=== PATIENT | male | born 1940 | race Caucasian/White ===

== ENCOUNTER → 2018-04-20 | Day surgery (SDC) | payer OTHER ==
[2018-04-18 13:00] LABS: BASOPHILS # (AUTO) 0.1 (0.0-0.1); BASOPHILS % 0.7 % (0.0-1.0); EOSINOPHILS # (AUTO) 0.1 (0.0-0.4); EOSINOPHILS % 1.7 % (0.0-6.0); HEMOGLOBIN 11.9 g/dL (14.0-18.0); LYMPHOCYTES # (AUTO) 2.1 (1.0-3.2); LYMPHOCYTES % 29.7 % (18.0-39.1); MEAN CORPUSCULAR HEMOGLOBIN 32.1 pg (28-32); MEAN CORPUSCULAR HGB CONC 33.1 g/dL (31-35); MONOCYTES # (AUTO) 0.6 (0.2-0.8); MONOCYTES % 8.7 % (4.4-11.3); NEUTROPHILS # (AUTO) 4.1 (2.1-6.9); NEUTROPHILS % 59.1 % (38.7-80.0); PLATELET COUNT 190 x10e3/uL (140-360); RED BLOOD COUNT 3.71 x10e6/uL (4.3-5.7); RED CELL DISTRIBUTION WIDTH 12.6 % (11.7-14.4)
[2018-04-18 13:17] LABS: ANION GAP 14.9 mmol/L (8-16); CALCIUM 9.3 mg/dL (8.4-10.2); CREATININE, SERUM 1.65 mg/dL (0.72-1.25); POTASSIUM 3.9 mmol/L (3.5-5.1)
--- NOTE | 2018-04-18 13:24 | Diagnostic Imaging Report ---
EXAMINATION: PA and lateral views of the chest. COMPARISON: None CLINICAL HISTORY: Preop prostate surgery DISCUSSION: The lungs are well-inflated. No focal consolidation, pleural effusion, or pneumothorax. Calcified granuloma in the lingula. Atherosclerotic calcification of the thoracic aorta. Normal heart size. No overt pulmonary edema. No acute osseous abnormality. Incidental note of colonic interposition between the right hepatic lobe and right hemidiaphragm. IMPRESSION: No acute cardiopulmonary abnormalities. Signed by: Dr. Joni Skinner M.D. on 04/18/2018 1:20 PM
[~2018-04-20] MED LIST: ARICEPT5 MG PO; ASPIR 8181 MG PO; CARVEDILOL12.5 MG PO; CEFTRIAXONE SOD 1 GM VIAL ONE; CO Q-10 PO; DESFLURANE 240 ML BTL INH ONE; DEXAMETHASONE SOD PHOS INJ 4 MG/ML VIAL ONE; DOXAZOSIN MESYLA4 MG PO; DOXYCYCLINE HY100 M3 PO; GENTAMICIN 80MG/NS 100 ML 100 ML IV ONE; IOPAMIDOL 610MG/1ML 300 MG/ML VIAL IV ONE; ISOSORBIDE DINI10 MG PO; LASIX20 MG PO; LIDOCAINE HCL 2% LOCAL INJ 5 ML SDV VIAL INJ ONE; LOSARTAN-HCTZ1 EAC1 PO; LOVASTATIN40 MG PO; MECLIZINE HCL12.5 MG PO; NAMENDA10 MG PO; ONDANSETRON HCL INJ 2 MG/ML VIAL ONE; POTASSIUM CHLO10 ME1 PO; PROPOFOL IV EMULSION 10 MG/ML 20 ML VIAL ONE; VITAMIN B-121000 MCG PO
--- OUTSIDE RECORDS SUMMARY | 2018-04-20 07:54 | XMS REPORT ---
Author Author Kinjal Layton Organization [employer] Address Unknown Phone Unavailable Care Team Providers Care Chief Projectionist Name Role Phone Kinjal Layton CP Unavailable Allergies, Adverse Reactions, Alerts Substance Reaction Event Type N.K.D.A. 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 Active Assessment Benign hypertensive heart disease without congestive heart failure I11.9 Active Assessment Pure hypercholesterolemia E78.0 Active Medications Medication Code System Code Instructions Start Date End Date Status Dosage [facility] [address]-25 4 MG Orally Once a day Active 1 tablet Lovastatin [facility] [address]-93 40 MG Orally Once a day Active 1 tablet with a meal Dre Aspirin [facility] [address]-09 81 mg as needed Active Orally [facility] 75316104176 6.25 Active TAKE ONE TABLET BY MOUTH TWICE A DAY WITH FOOD Losartan Potassium-HCTZ [facility] [address]-96 100-25 MG Orally Once a day Active 1 tablet Social History Social History Element Qualifiers Date Reported Smoking: . Are you a: Never smoker Apr 09, 2016 Alcohol: . None Apr 09, 2016 Vital Signs Date/Time: Aug 13, 2015 Weight 180 lbs Cardiac Monitoring Heart Rate 48 /min Blood Pressure Diastolic 80 mm Hg Blood Pressure Systolic 128 mm Hg Summary Purpose eClinicalWorks Submission
--- OUTSIDE RECORDS SUMMARY | 2018-04-20 07:54 | XMS REPORT ---
Author Author Kinjal Layton Organization [employer] Address Unknown Phone Unavailable Care Team Providers Care Ceramic Tiler Name Role Phone Kinjal Layton CP Unavailable Allergies, Adverse Reactions, Alerts Substance Reaction Event Type N.K.D.A. 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 Active Assessment Dizziness R42 Active Assessment Other symptoms involving cardiovascular system R09.89 Active Assessment Benign hypertensive heart disease without congestive heart failure I11.9 Active Assessment Pure hypercholesterolemia E78.0 Active Medications Medication Code System Code Instructions Start Date End Date Status Dosage Losartan Potassium-HCTZ [facility] [address]-96 100-25 MG Orally Once a day Active 1 tablet Lovastatin [facility] [address]-88 40 MG Orally Once a day Active 1 tablet with a meal Dre [facility]ir[facility] [address]-11 81 mg as needed Active Orally Core[facility] 17501379154 6.25 Active TAKE ONE TABLET BY MOUTH TWICE A DAY WITH FOOD Doxazosin Mesylate [facility] [address]-29 4 MG Orally Once a day Active 1 tablet Isosorbide Dinitrate [facility] 19434967011 10 Active TAKE ONE TABLET BY MOUTH EVERY NIGHT AT BEDTIME. SUBSTITUTED FOR IMDUR Social History Social History Element Qualifiers Date Reported Smoking: . Are you a: Never smoker Apr 09, 2016 Alcohol: . None Apr 09, 2016 Vital Signs Date/Time: Feb 26, 2016 Weight 182 lbs Cardiac Monitoring Heart Rate 44 /min Blood Pressure Diastolic 68 mm Hg Blood Pressure Systolic 140 mm Hg Summary Purpose eClinicalWorks Submission
--- OUTSIDE RECORDS SUMMARY | 2018-04-20 07:54 | XMS REPORT ---
Author Author Kinjal Layton Organization [employer] Address Unknown Phone Unavailable Care Team Providers Care Roller Helper Name Role Phone Kinjal Layton CP Unavailable Allergies, Adverse Reactions, Alerts Substance Reaction Event Type N.K.D.A. 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 Active Assessment Dizziness R42 Active Assessment Benign hypertensive heart disease without congestive heart failure I11.9 Active Assessment Pure hypercholesterolemia E78.0 Active Medications Medication Code System Code Instructions Start Date End Date Status Dosage Doxazosin Mesylate [facility] [address]-51 4 MG Orally Once a day Active 1 tablet Dre Aspirin [facility] [address]-84 81 mg as needed Active Orally Losartan Potassium-HCTZ [facility] [address]-70 100-25 MG Orally Once a day Active 1 tablet Lovastatin [facility] [address]-06 40 MG Orally Once a day Active 1 tablet with a meal Coreg [facility] 55012269408 6.25 Active TAKE ONE TABLET BY MOUTH TWICE A DAY WITH FOOD Isosorbide Dinitrate [facility] 13442235335 10 Active TAKE ONE TABLET BY MOUTH EVERY NIGHT AT BEDTIME. SUBSTITUTED FOR IMDUR Social History Social History Element Qualifiers Date Reported Smoking: . Are you a: Never smoker Apr 09, 2016 Alcohol: . None Apr 09, 2016 Vital Signs Date/Time: Aug 28, 2015 Weight 180 lbs Cardiac Monitoring Heart Rate 48 /min Blood Pressure Diastolic 80 mm Hg Blood Pressure Systolic 160 mm Hg Summary Purpose eClinicalWorks Submission
--- OUTSIDE RECORDS SUMMARY | 2018-04-20 07:54 | XMS REPORT ---
Author Author Kinjal Layton Organization [employer] Address Unknown Phone Unavailable Care Team Providers Care Methods Examiner Name Role Phone Kinjal Layton CP Unavailable Allergies, Adverse Reactions, Alerts Substance Reaction Event Type N.K.D.A. 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 Active Assessment Other symptoms involving cardiovascular system 785.9 Active Assessment Atherosclerosis of [place] arteries of the extremities with intermittent claudication 440.21 Active Assessment 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 Active Assessment Dizziness and giddiness 780.4 Active Medications Medication Code System Code Instructions Start Date End Date Status Dosage [facility] [address]-78 6.25 MG Orally Twice a day Active 1 tablet with food Losartan Potassium-HCTZ [facility] [address]-98 100-25 MG Orally Once a day Active 1 tablet Doxazosin Mesylate [facility] [address]-77 4 MG Orally Once a day Active 1 tablet Core[facility] [address]-93 6.25 MG Orally Twice a day Active 1 tablet with food Dre Aspirin [facility] [address]-08 81 mg as needed Active Orally Lovastatin [facility] [address]-60 40 MG Orally Once a day Active 1 tablet with a meal Doxycycline Monohyd-Cleanser Unknown 0 150 MG (TABS) Combination Active as directed Social History Social History Element Qualifiers Date Reported Smoking: . Are you a: Never smoker Apr 09, 2016 Alcohol: . None Apr 09, 2016 Vital Signs Date/Time: December 19, 2014 Weight 183 lbs Cardiac Monitoring Heart Rate 68 /min Blood Pressure Diastolic 62 mm Hg Blood Pressure Systolic 110 mm Hg Summary Purpose eClinicalWorks Submission
--- OUTSIDE RECORDS SUMMARY | 2018-04-20 07:54 | XMS REPORT ---
Author Author Kinjal Layton Organization [employer] Address Unknown Phone Unavailable Care Team Providers Care Halfway House Counselor Name Role Phone Kinjal Layton CP Unavailable Allergies, Adverse Reactions, Alerts Substance Reaction Event Type N.K.D.A. 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 Active Assessment Benign hypertensive heart disease without congestive heart failure I11.9 Active Assessment Dizziness R42 Active Medications Medication Code System Code Instructions Start Date End Date Status Dosage Coreg [facility] 50185387070 6.25 Active TAKE ONE TABLET BY MOUTH TWICE A DAY WITH FOOD Dre Aspirin ND 82718790688 81 mg as needed Active Orally Losartan Potassium-HCTZ ND 16520123964 100-25 MG Orally Once a day Active 1 tablet Lovastatin ND 56223669012 40 MG Orally Once a day Active 1 tablet with a meal Doxazosin Mesylate ND 29176098737 4 MG Orally Once a day Active 1 tablet Isosorbide Dinitrate ND 33207059376 10 Active TAKE ONE TABLET BY MOUTH EVERY NIGHT AT BEDTIME. SUBSTITUTED FOR IMDUR Vital Signs Date/Time: Apr 21, 2017 BMI 33.20 Index Weight 170 lbs Height 5'9 in Cardiac Monitoring Heart Rate 48 /min Blood Pressure Diastolic 66 mm Hg Blood Pressure Systolic 140 mm Hg Results No Known Results Summary Purpose eClinicalWorks Submission
--- OUTSIDE RECORDS SUMMARY | 2018-04-20 07:54 | XMS REPORT | Continuity of Care Document ---
Author Author [facility] Interface Address Unknown Phone Unavailable Problems Problem Status Onset Date Classification Date Reported Comments Source Benign hypertensive heart disease without heart failure Active Problem 08/31/2017 [facility] Atherosclerosis of [place] arteries of the extremities with intermittent claudication Active Problem 08/31/2017 med [facility] Pure hypercholesterolemia Active Problem 08/31/2017 [facility] Other symptoms involving cardiovascular system Active Diagnosis 08/31/2017 [facility] Atheroscler of [place] artery of both legs with intermit claudication Active Diagnosis 08/31/2017 Kinjal Layton Benign hypertensive heart disease without congestive heart failure Active Diagnosis 08/31/2017 Kinjal De Guzmanmed Dizziness Active Diagnosis 08/31/2017 Kinjal Layton Deep vein thrombophlebitis of right leg Active Diagnosis 08/31/2017 [facility] Bradycardia [facility] Pure hypercholesterolemia Active Diagnosis 05/17/2016 Kinjal De Guzmanmed Other symptoms involving cardiovascular system Active Diagnosis 05/19/2016 [facility] Kinjal Dizziness and giddiness Active Diagnosis 05/19/2016 Kinjal Layton Medications Medication Details Route Status Patient Instructions Ordering Provider Order Date Source Doxazosin Mesylate 1 tablet Orally Active 4 MG Orally Once a day Kinjal Layton Lovastatin 1 tablet with a meal Orally Active 40 MG Orally Once a day Kinjal Layton Dre Aspirin Orally NA Active 81 mg as needed dash Layton Coreg TAKE ONE TABLET BY MOUTH TWICE A DAY WITH FOOD NA Active 6.25 Kinjal Layton Losartan Potassium-HCTZ 1 tablet Orally Active 100-25 MG Orally Once a day Kinjal Layton Isosorbide Dinitrate TAKE ONE TABLET BY MOUTH EVERY NIGHT AT BEDTIME. SUBSTITUTED FOR IMDUR NA Active 10 Kinjal Layton Doxazosin Mesylate 1 tablet Orally Active 4 MG Orally Once a day Kinjal Layton Dre Aspirin Orally NA Active 81 mg as needed Kinjal Layton Losartan Potassium-HCTZ 1 tablet Orally Active 100-25 MG Orally [facility] Lovastatin 1 tablet with a meal Orally Active 40 MG Orally Once a day Ahmed Ahmed Ahmed Doxycycline Monohyd-Cleanser as directed Combination Active 150 MG (TABS) Combination Ahmed Gabmed Ahmed Coreg 1 tablet with food Orally Active 6.25 MG Orally Twice a day Ahmed Ahmed Ahmed Allergies, Adverse Reactions, Alerts Substance Category Reaction Severity Reaction type Status Date Reported Comments Source N.K.D.A. Adverse Reaction Info Not Available Adverse Reaction Active 05/05/2017 Ahmed Ahmed Immunizations Immunization Date Given Site Status Last Updated Comments Source Results Order Name Results Value Reference Range Date Interpretation Comments Source Vital Signs Vital Sign Value Date Comments Source Weight 170 05/05/2017 Ahmed Ahmed Heart Rate 48 05/05/2017 Ahmed Ahmed Diastolic (mm Hg) 60 05/05/2017 Ahmed Ahmed Systolic (mm Hg) 122 05/05/2017 Ahmed Ahmed Weight 170 04/21/2017 Ahmed Ahmed Heart Rate 48 04/21/2017 Ahmed Ahmed Diastolic (mm Hg) 66 04/21/2017 Ahmed Ahmed Systolic (mm Hg) 140 04/21/2017 Ahmed Ahmed Weight 175 10/20/2016 Ahmed Ahmed Heart Rate 44 10/20/2016 Ahmed Ahmed Diastolic (mm Hg) 64 10/20/2016 Ahmed Ahmed Systolic (mm Hg) 104 10/20/2016 Ahmed Ahmed Weight 182 04/09/2016 Ahmed Ahmed Heart Rate 56 04/09/2016 Ahmed Ahmed Diastolic (mm Hg) 70 04/09/2016 Ahmed Ahmed Systolic (mm Hg) 140 04/09/2016 Ahmed Ahmed Weight 182 02/26/2016 Ahmed Ahmed Heart Rate 44 02/26/2016 Ahmed Ahmed Diastolic (mm Hg) 68 02/26/2016 Ahmed Ahmed Systolic (mm Hg) 140 02/26/2016 Ahmed Ahmed Weight 180 08/28/2015 Ahmed Ahmed Heart Rate 48 08/28/2015 Ahmed Ahmed Diastolic (mm Hg) 80 08/28/2015 Ahmed Ahmed Systolic (mm Hg) 160 08/28/2015 Ahmed Ahmed Weight 180 08/13/2015 Ahmed Ahmed Heart Rate 48 08/13/2015 Ahmed Ahmed Diastolic (mm Hg) 80 08/13/2015 Ahmed Ahmed Systolic (mm Hg) 128 08/13/2015 Ahmed Ahmed Weight 183 02/19/2015 Ahmed Ahmed Heart Rate 48 02/19/2015 Ahmed Ahmed Diastolic (mm Hg) 58 02/19/2015 Ahmed Ahmed Systolic (mm Hg) 124 02/19/2015 Ahmed Ahmed Weight 183 12/19/2014 Ahmed Ahmed Heart Rate 68 12/19/2014 Ahmed Ahmed Diastolic (mm Hg) 62 12/19/2014 Ahmed Ahmed Systolic (mm Hg) 110 12/19/2014 Ahmed Ahmed Weight 190 07/18/2014 Ahmed Ahmed Heart Rate 48 07/18/2014 Ahmed Ahmed Diastolic (mm Hg) 68 07/18/2014 Ahmed Ahmed Systolic (mm Hg) 140 07/18/2014 Ahmed Ahmed Encounters Location Location Details Encounter Type Encounter Number Reason For Visit Attending Provider ADM Date DC Date Status Source Kinjal Layton MD, [place] 4 MONTH F/U [id number] 07/18/2014 07/18/2014 Kinjal Layton MD, PA 4 MONTH F/U [id number] 07/18/2014 07/18/2014 Kinjal Layton MD, PA 4 MONTH F/U [id number] 07/18/2014 07/18/2014 Kinjal Layton MD, PA 6 MO F/U [id number] 12/19/2014 12/19/2014 Kinjal Layton MD, PA 6 MO F/U [id number] 12/19/2014 12/19/2014 Kinjal Layton MD, [place] f/u testing [id number] 02/19/2015 02/19/2015 Kinjal Layton MD, [place] f/u 6 mon [id number] 08/13/2015 08/13/2015 Kinjal Layton MD, [place] f/u 6 [facility] [id number] 08/13/2015 08/13/2015 Kinjal Layton MD, PA f/u 6 [facility] [id number] 08/13/2015 08/13/2015 Kinjal Layton MD, PA f/u 6 [facility] [id number] 08/13/2015 08/13/2015 Kinjal Layton MD, PA f/u 6 [facility] [id number] 08/13/2015 08/13/2015 Kinjal Layton MD, PA f/u 6 [facility] [id number] 08/13/2015 08/13/2015 Kinjal Layton MD, PA f/u 6 [facility] [id number] 08/13/2015 08/13/2015 Kijnal Layton MD, PA f/u Echo [id number] 08/28/2015 08/28/2015 Kinjal Layton MD, PA f/u Echo [id number] 08/28/2015 08/28/2015 Kinjal Layton MD, [place] f/u Echo [id number] 08/28/2015 08/28/2015 Kinjal Layton MD, [place] f/u Echo [id number] 08/28/2015 08/28/2015 Kinjal Layton MD, [place] f/u Echo [id number] 08/28/2015 08/28/2015 Kinjal Layton MD, [place] f/u Echo [id number] 08/28/2015 08/28/2015 Kinjal Layton MD, [place] f/u Echo [id number] 08/28/2015 08/28/2015 Kinjal Layton MD, PA 6 mo f/u [id number] 02/26/2016 02/26/2016 Kinjal Layton MD, PA 6 mo f/u [id number] 02/26/2016 02/26/2016 Kinjal Layton MD, PA 6 mo f/u [id number] 02/26/2016 02/26/2016 Kinjal Layton MD, PA 6 mo f/u [id number] 02/26/2016 02/26/2016 Kinjal Layton MD, PA 6 mo f/u [id number] 02/26/2016 02/26/2016 Kinjal Layton MD, PA f/u testing [id number] 04/09/2016 04/09/2016 Kinjal Layton MD, [place] f/u testing [id number] 04/09/2016 04/09/2016 Kinjal Layton MD, PA f/u testing [id number] 04/09/2016 04/09/2016 Kinjal Layton MD, [place] f/u testing [id number] 04/09/2016 04/09/2016 Kinjal Layton Procedures Procedure Code Date Perfomer Comments Source
--- OUTSIDE RECORDS SUMMARY | 2018-04-20 07:54 | XMS REPORT ---
Author Author Kinjal Layton Organization e[employer] Address Unknown Phone Unavailable Care Team Providers Care Numerical Control Nesting Operator Name Role Phone Kinjal Layton CP Unavailable Allergies, Adverse Reactions, Alerts Substance Reaction Event Type N.K.D.A. 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 Active Assessment Benign hypertensive heart disease without congestive heart failure I11.9 Active Assessment Dizziness R42 Active Medications Medication Code System Code Instructions Start Date End Date Status Dosage Doxazosin Mesylate ND 27170873873 4 MG Orally Once a day Active 1 tablet Lovastatin ND 03692937150 40 MG Orally Once a day Active 1 tablet with a meal Dre Aspirin ND 92671006216 81 mg as needed Active Orally Coreg ND 09846685102 6.25 Active TAKE ONE TABLET BY MOUTH TWICE A DAY WITH FOOD Losartan Potassium-HCTZ ND 07145643993 100-25 MG Orally Once a day Active 1 tablet Isosorbide Dinitrate ND 22621993047 10 Active TAKE ONE TABLET BY MOUTH EVERY NIGHT AT BEDTIME. SUBSTITUTED FOR IMDUR Vital Signs Date/Time: October 20, 2016 BMI 34.17 Index Weight 175 lbs Height 5'9 in Cardiac Monitoring Heart Rate 44 /min Blood Pressure Diastolic 64 mm Hg Blood Pressure Systolic 104 mm Hg Results No Known Results Summary Purpose eClinicalWorks Submission
--- OUTSIDE RECORDS SUMMARY | 2018-04-20 07:54 | XMS REPORT ---
Author Author Kinjal Layton Organization e[employer] Address Unknown Phone Unavailable Care Team Providers Care Brasswind Instrument Repairer Name Role Phone Kinjal Layton CP Unavailable Allergies, Adverse Reactions, Alerts Substance Reaction Event Type N.K.D.A. 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 Active Assessment Benign hypertensive heart disease without congestive heart failure I11.9 Active Assessment Dizziness R42 Active Medications Medication Code System Code Instructions Start Date End Date Status Dosage Doxazosin Mesylate ND 32168681150 4 MG Orally Once a day Active 1 tablet Dre Aspirin ND 91268222712 81 mg as needed Active Orally Lovastatin ND 45454469112 40 MG Orally Once a day Active 1 tablet with a meal Losartan Potassium-HCTZ ND 25303181493 100-25 MG Orally Once a day Active 1 tablet Coreg ND 25591137459 6.25 Active TAKE ONE TABLET BY MOUTH TWICE A DAY WITH FOOD Isosorbide Dinitrate ND 58024985492 10 Active TAKE ONE TABLET BY MOUTH EVERY NIGHT AT BEDTIME. SUBSTITUTED FOR IMDUR Vital Signs Date/Time: May 05, 2017 BMI 33.20 Index Weight 170 lbs Height 5'9 in Cardiac Monitoring Heart Rate 48 /min Blood Pressure Diastolic 60 mm Hg Blood Pressure Systolic 122 mm Hg Results No Known Results Summary Purpose eClinicalWorks Submission
--- OUTSIDE RECORDS SUMMARY | 2018-04-20 07:54 | XMS REPORT ---
Author Author [facility] Address Unknown Phone Unavailable Care Team Providers Care College Professor Name Role Phone JAN LINDSEY Unavailable Unavailable Problems This patient has no known problems. Allergies, Adverse Reactions, Alerts This patient has no known allergies or adverse reactions. Medications This patient has no known medications. Results Test Description Test Time Test Comments Text Results Atomic Results Result Comments CHEST 2 VIEWS 2018-04-18 13:18:00 [place] [address] Patient Name: JUAN F ARRIAGA MR #: [id number] : 1940 Age/Sex: 77/M Req #: [id number] [facility] Physician: Ordered by: JAN LINDSEY MD Report #: [id number] Location: OR Room/Bed: Procedure: [id number] DX/CHEST 2 VIEWS Exam Date: 04/18/18 Exam Time: 1300 REPORT STATUS: Signed EXAMINATION: PA and lateral views of the chest. COMPARISON: None CLINICAL HISTORY: Preop prostate surgery DISCUSSION: The lungs are well-inflated. No focal consolidation, pleural effusion, or pneumothorax. Calcified granuloma in the lingula. Atherosclerotic calcification of the thoracic aorta. Normal heart size. No overt pulmonary edema. No acute osseous abnormality. Incidental note of colonic interposition between the right hepatic lobe and right hemidiaphragm. IMPRESSION: No acute cardiopulmonary abnormalities. Signed by: Dr. Anisha Jenkins M.D. on 04/18/2018 1:20 PM Dictated By: ANISHA JENKINS MD 132 Transcribed By: EV on 04/18/181319 COPY TO: JAN LINDSEY MD
--- OUTSIDE RECORDS SUMMARY | 2018-04-20 07:54 | XMS REPORT ---
Author Author Kinjal Layton Organization [employer] Address Unknown Phone Unavailable Care Team Providers Care Insole Buffer Name Role Phone Kinjal Layton CP Unavailable Allergies, Adverse Reactions, Alerts Substance Reaction Event Type N.K.D.A. 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 [address]-47 40 MG Orally Once a day Active 1 tablet with a meal [facility] [address]-07 100-25 MG Orally Once a day Active [address] [facility] [address]-65 4 MG Orally Once a day Active 1 tablet Doxycycline Monohyd-Cleanser Unknown 0 150 MG (TABS) Combination Active as directed Coreg [facility] [address]-88 6.25 MG Orally Twice a day Active 1 tablet with food Dre Aspirin [facility] [address]-53 81 mg as needed Active Orally Social History Social History Element Qualifiers Date Reported Smoking: . Are you a: Never smoker Apr 09, 2016 Alcohol: . None Apr 09, 2016 Vital Signs Date/Time: Jul 18, 2014 Weight 190 lbs Cardiac Monitoring Heart Rate 48 /min Blood Pressure Diastolic 68 mm Hg Blood Pressure Systolic 140 mm Hg Summary Purpose [employer] Submission
--- OUTSIDE RECORDS SUMMARY | 2018-04-20 07:54 | XMS REPORT ---
Author Author Kinjal Layton Organization [employer] Address Unknown Phone Unavailable Care Team Providers Care Net Maker Name Role Phone Kinjal Layton CP Unavailable Allergies, Adverse Reactions, Alerts Substance Reaction Event Type N.K.D.A. 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 Active Assessment Other symptoms involving cardiovascular system R09.89 Active Assessment Atheroscler of [place] artery of both legs with intermit claudication I70.213 Active Assessment Benign hypertensive heart disease without congestive heart failure I11.9 Active Assessment Dizziness R42 Active Medications Medication Code System Code Instructions Start Date End Date Status Dosage Lovastatin [facility] [address]-68 40 MG Orally Once a day Active 1 tablet with a meal Doxazosin Mesylate [facility] [address]-01 4 MG Orally Once a day Active 1 tablet Losartan [facility] [address]-87 100-25 MG Orally Once a day Active 1 tablet Isosorbide Dinitrate [facility] 83244600621 10 Active TAKE ONE TABLET BY MOUTH EVERY NIGHT AT BEDTIME. SUBSTITUTED FOR IMDUR [facility] [address]-93 81 mg as needed Active Orally Coreg [facility] 01398294106 6.25 Active TAKE ONE TABLET BY MOUTH TWICE A DAY WITH FOOD Social History Social History Element Qualifiers Date Reported Smoking: . Are you a: Never smoker Apr 09, 2016 Alcohol: . None Apr 09, 2016 Vital Signs Date/Time: Apr 09, 2016 Weight 182 lbs Cardiac Monitoring Heart Rate 56 /min Blood Pressure Diastolic 70 mm Hg Blood Pressure Systolic 140 mm Hg Summary Purpose [employer] Submission
--- OUTSIDE RECORDS SUMMARY | 2018-04-20 07:54 | XMS REPORT ---
Author Author Kinjal Layton Organization [employer] Address Unknown Phone Unavailable Care Team Providers Care Produce Runner Name Role Phone Kinjal Layton CP Unavailable Allergies, Adverse Reactions, Alerts Substance Reaction Event Type N.K.D.A. Info Not Available Non Drug Allergy Encounters Encounter Location Date f/u testing [facility] [place] Apr 09, 2016 4 MONTH F/U [facility] [place] Jul 18, 2014 6 MO F/U [facility] December 19, 2014 f/u testing [facility] Feb 19, 2015 f/u 6 mon [facility] [place] Aug 13, 2015 f/u Echo [facility] Aug 28, 2015 6 mo f/u [facility] [place] Feb 26, 2016 Problems Problem Type Condition ICD-9 Code Onset Dates Condition Status Problem Pure hypercholesterolemia 272.0 Active Problem Atherosclerosis of [place] arteries of the extremities with intermittent claudication 440.21 Active Problem 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 Active Assessment Other symptoms involving cardiovascular system 785.9 Active Assessment Atherosclerosis of [place] arteries of the extremities with intermittent claudication 440.21 Active Assessment 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 Active Assessment Dizziness and giddiness 780.4 Active Medications Medication Code System Code Instructions Start Date End Date Status Dosage Dre Aspirin [facility] [address]-66 81 mg as needed Active Orally Lovastatin [facility] [address]-03 40 MG Orally Once a day Active 1 tablet with a meal [facility] [address]-54 6.25 MG Orally Twice a day Active 1 tablet with food Losartan Potassium-HCTZ [facility] [address]-19 100-25 MG Orally Once a day Active 1 tablet Doxazosin Mesylate [facility] [address]-31 4 MG Orally Once a day Active 1 tablet Core[facility] [address]-68 6.25 MG Orally Twice a day Active 1 tablet with food Social History Social History Element Qualifiers Date Reported Smoking: . Are you a: Never smoker Apr 09, 2016 Alcohol: . None Apr 09, 2016 Vital Signs Date/Time: Feb 19, 2015 Weight 183 lbs Cardiac Monitoring Heart Rate 48 /min Blood Pressure Diastolic 58 mm Hg Blood Pressure Systolic 124 mm Hg Summary Purpose [employer] Submission
[2018-04-20 11:55] VITALS: BP 160/66
--- NOTE | 2018-06-09 01:32 | Operative Report ---
DATE OF PROCEDURE: April 20, 2018 PREOPERATIVE DIAGNOSES: 1. Obstructive BPH. 2. Urinary tract infections. POSTOPERATIVE DIAGNOSES: 1. Obstructive BPH. 2. Urinary tract infections. OPERATIONS PERFORMED: 1. Cystourethroscopy with bilateral ureteral catheterization and retrograde ureteropyelography (separate procedure performed for the urinary tract infections). 2. Interpretation of retrograde ureteropyelography. 3. Supervision of fluoroscopy. No radiologist present. 4. Cystourethroscopy with implantation of UroLift implants x4. ANESTHESIA: General. COMPLICATIONS: None. CLINICAL SUMMARY: Morales Wagner is a 78-year-old man with obstructive BPH. He has failed medical management and desires UroLift implant. He is aware of the risks of bleeding, infection, injury to adjacent structures, need for additional procedures and elected to proceed. OPERATIVE PROCEDURE IN DETAIL: Informed consent was verified. Morales Wagner was appropriately identified, taken to the operating room, placed on the cystoscopy table in supine position. Anesthesia was uneventfully begun. The patient was then carefully and gently repositioned in the dorsal lithotomy position with all pressure points well padded. His genitalia were prepared and draped in usual sterile fashion. The 22.5-Brazilian cystoscope sheath with a visual obturator in place was atraumatically inserted into the patient's urethra. It was guided down the unremarkable distal urethra past some wide-caliber, not clinically significant bulbar urethral strictures, as well as the stricture just outside the external urinary sphincter. We passed the normal external urinary sphincter and went into the patient's prostate bed which was significant for visually obstructing bilobar BPH with kissing lateral lobes. Panendoscopy of the urinary bladder revealed trabeculations, but no tumors, no stones and no diverticula. Normally positioned and configured ureteral orifices were identified. An 8-Brazilian catheter was used to cannulate both ureters and retrograde ureteral pyelograms were performed. Interpretation of retrograde ureteropyelography: Contrast was instilled in retrograde fashion bilaterally. There were no tumors, no stones and no diverticula. Unobstructed drainage was observed bilaterally fluoroscopically. There was dilation of both distal ureters down to the level of the patient's intramural ureter. The bladder was drained. The cystoscope was withdrawn. We inserted a 20-Brazilian cystoscope sheath with a visual obturator, guided it atraumatically into the patient's bladder. We then placed 4 UroLift implants. These implants were placed anterolaterally. Two were placed on either side, 1.5 cm distal to the bladder neck and 2 were placed on either side at the level of the verumontanum. This resulted in a continuous anterior channel which was open. The patient's bladder was drained. The cystoscope was withdrawn. Digital rectal examination revealed a 30-g prostate, smooth, not fluctuant, without any nodules. The patient was then uneventfully reversed from anesthesia and taken to the recovery room in stable condition. There were no complications during the procedure. He tolerated the procedure well. Explicit postoperative instructions were given. We will follow the patient up in the office at which point in time, we will perform uroflowmetry and bladder ultrasonography. Job#: [id number]
== END | disposition home or self-care (01) ==
LOC: OR 07:47
PROVIDERS: ATTEND Urology
DX: N40.1 Benign prostatic hyperplasia with lower urinary tract symptoms (principal); N13.8 Other obstructive and reflux uropathy; R39.14 Feeling of incomplete bladder emptying; R35.1 Nocturia; R39.12 Poor urinary stream; N41.1 Chronic prostatitis; N32.89 Other specified disorders of bladder; I12.9 Hypertensive chronic kidney disease with stage 1 through stage 4 chronic kidney disease, or unspecified chronic kidney disease; N18.9 Chronic kidney disease, unspecified; E78.00 Pure hypercholesterolemia, unspecified; R00.1 Bradycardia, unspecified; F03.90 Unspecified dementia, unspecified severity, without behavioral disturbance, psychotic disturbance, mood disturbance, and anxiety; Z01.810 Encounter for preprocedural cardiovascular examination; Z01.812 Encounter for preprocedural laboratory examination; Z01.818 Encounter for other preprocedural examination; Z79.82 Long term (current) use of aspirin
CPT/HCPCS: 52005; C9740; 36415; 71046; 74420; 80048; 85025; 93005; J0696; J1100; J1580; J2001; J2405; L8699